=== PATIENT | male | born 2005 | race African-American/Black ===

== ENCOUNTER → 2024-07-14 19:34 | Outpatient (REF) | payer OTHER, SELFPAY | LOC: RAD 19:34 | PROVIDERS: ATTENDING PHYSICIAN Physician Assistant Medical; FAMILY PHYSICIAN Student in an Organized Health Care Education/Training Program | DX: S60.031A Contusion of right middle finger without damage to nail, initial encounter (principal) | CPT/HCPCS: 73140 ==